=== PATIENT | female | born 1940 | race Caucasian/White ===

== ENCOUNTER 2018-08-02 09:27 | Emergency (ER) | payer MEDICARE ==
[~2018-08-02] VITALS: Ht 149.9 cm; Wt 85.0 kg
[~2018-08-02 09:27] MED LIST: ASPIRIN LOW DOS81 M2 PO; CIPROFLOXACN500 MG PO; DOXYCYCL HYC100 M3 PO; FISH OIL1000 MG PO; LISINOPRIL20 M1 PO; LISINOPRIL40 MG PO; METRONIDAZOL500 MG PO; SIMVASTATIN20 MG PO
[2018-08-02 10:20] LABS: HEMATOCRIT 33.1 % (37.0-47.0); HEMOGLOBIN 10.4 g/dl (12.0-16.0); IMMATURE GRANULOCYTES 0.6 % (0.0-5.0); MEAN CELL VOLUME 95.7 fL CALC (80.0-100.0); MEAN CORPUSCULAR HGB 30.1 pG CALC (26.0-32.0); MEAN CORPUSCULAR HGB CONC 31.4 g/L CALC (32.0-36.0); NEUT# 5.12 thou/uL (2.00-7.15); RED BLOOD COUNT 3.46 mill/uL (4.20-5.60); RED CELL DISTRI WIDTH 13.3 % (11.5-15.5)
[2018-08-02 10:36] LABS: ANION GAP 14 (6-22 (CALC)); BUN 26 mg/dL (8-23); BUN/CREATININE RATIO 30 (12-20 (CALC)); CARBON DIOXIDE 24 mmol/l (22-30); CHLORIDE 108 mmol/l (95-108); CREATININE 0.9 mg/dL (0.5-1.0); GFR > 60 ML/MIN (>=60 (CALC)); GFR FOR AFR.AMER. > 60 ML/MIN (>=60 (CALC)); POTASSIUM 4.4 mmol/l (3.5-5.1); SODIUM 142 mmol/l (137-146)
[2018-08-02] MEDS ORDERED: LISINOPRIL20 MG PO (11:18)
[2018-08-02] MEDS ORDERED: SIMVASTATIN10 MG PO (11:19)
[2018-08-02] MEDS ORDERED: PRESERVISION ARED1 PO (11:21)
[2018-08-02] MEDS ORDERED: VITAMIN C500 MG PO (11:22)
[2018-08-02] MEDS ORDERED: B121000 MCG PO (11:23)
[2018-08-02] MEDS ORDERED: FISH OIL1000 MG PO (11:25)
[2018-08-02] MEDS ORDERED: VITAMIN D2 PO (11:25)
[2018-08-02] MEDS ORDERED: CALCIUM500 M4 PO (11:26)
[2018-08-02] MEDS ORDERED: MAGNESIUM250 M1 PO (11:26)
[2018-08-02 11:29] VITALS: BP 143/62
== END 2018-08-02 11:48 | disposition home or self-care (01) ==
LOC: ED 09:27
PROVIDERS: Family Medicine
DX: K62.5 Hemorrhage of anus and rectum (principal); N95.0 Postmenopausal bleeding; I10 Essential (primary) hypertension; H35.30 Unspecified macular degeneration

== ENCOUNTER 2018-08-03 10:49 | Emergency (ER) | payer MEDICARE ==
[~2018-08-03] VITALS: Ht 149.9 cm; Wt 81.0 kg
[~2018-08-03 10:49] MED LIST changes: +B121000 MCG PO; +CALCIUM500 M4 PO; +LISINOPRIL20 MG PO; +MAGNESIUM250 M1 PO; +PRESERVISION ARED1 PO; +SIMVASTATIN10 MG PO; +VITAMIN C500 MG PO; +VITAMIN D2 PO
[2018-08-03 11:33] LABS: HEMATOCRIT 31.4 % (37.0-47.0); HEMOGLOBIN 9.9 g/dl (12.0-16.0)
[2018-08-03 11:52] VITALS: BP 134/56
== END 2018-08-03 11:52 | disposition home or self-care (01) ==
LOC: ED 10:49
PROVIDERS: Family Medicine
DX: N95.0 Postmenopausal bleeding (principal); K92.1 Melena; I10 Essential (primary) hypertension; H35.30 Unspecified macular degeneration